=== PATIENT | female | born 1955 ===

== ENCOUNTER 2016-05-10 19:05 | Emergency (ER) | payer SELFPAY ==
[2016-05-10] MEDS ORDERED: Pantoprazole 80 MG in Sodium Chloride 0.9% 100 ML IV STA (19:28)
[2016-05-10] MEDS ORDERED: Sodium Chloride 0.9% 1,000 ML IV ONE (19:28)
--- NOTE | 2016-05-10 19:28 | C.PDOC ---
History Of Present Illness Pt presents to the ED with a c/o blood in stool that began today. Pt has bowel movements x2 daily. Pt denies any nausea, vomiting, fever, dysuria, or any other associated symptoms. Time Seen by Provider: 05/10/16 19:28 Chief Complaint (Nursing): GI Problem History Per: Patient History/Exam Limitations: no limitations Onset/Duration Of Symptoms: Hrs Current Symptoms Are (Timing): Still Present Severity: Mild Associated Symptoms: Rectal Bleeding (Blood in stool). denies: Nausea, Vomiting , Other (Fever. Dysuria) Recent travel outside of the [place]: No Past Medical History Reviewed: Historical Data, Nursing Documentation, Vital Signs Vital Signs: Last Vital Signs Temp 97.4 F L 05/10/16 19:17 Pulse 90 05/10/16 19:17 Resp 20 05/10/16 19:17 BP 119/77 05/10/16 19:17 Pulse Ox 98 05/10/16 20:13 Family History: States: Unknown Family Hx - Social History Hx Alcohol Use: No Hx Substance Use: No Review Of Systems Constitutional: Negative for: Fever Gastrointestinal: Positive for: Other (Blood in stool. ). Negative for: Nausea , Vomiting Genitourinary: Negative for: Dysuria Physical Exam - Physical Exam Appears: Non-toxic Skin: Warm, Dry Gastrointestinal/Abdominal: Normal Exam, Soft, No Tenderness Rectal: No Normal Exam (4/10 pain. 0.3 cm fissure. Bright red blood per rectum in rectal vault.), Heme Positive ED Course And Treatment - Laboratory Results Result Diagrams: 05/10/16 19:48 05/10/16 19:48 ECG: Interpreted By Me, Viewed By Me ECG Rhythm: Sinus Rhythm (83), Nonspecific Changes O2 Sat by Pulse Oximetry: 98 Pulse Ox Interpretation: Normal - Radiology CXR: Interpreted by Me, Viewed By Me Progress Note: blood work ,ivf, protonix Reevaluation Time: 22:02 Reassessment Condition: Improved Disposition Counseled Patient/Family Regarding: Studies Performed, Diagnosis, Need For Followup - Disposition Referrals: [facility] [Outside] Disposition Time: 19:28 Condition: FAIR Prescriptions: Polyethylene Glycol 3350 [Miralax] 17 gm PO DAILY #270 ml Instructions: Anal Fissure (ED), Rectal Bleeding (DC) Print Language: VIETNAMESE - Clinical Impression Clinical Impression: Rectal fissure - Scribe Statement The provider has reviewed the documentation as recorded by the Scribe David Melo All medical record entries made by the Jaylenibe were at my direction and personally dictated by me. I have reviewed the chart and agree that the record accurately reflects my personal performance of the history, physical exam, medical decision making, and the department course for this patient. I have also personally directed, reviewed, and agree with the discharge instructions and disposition.
[2016-05-10 19:53] LABS: BASO # 0.1 K/uL (0.0-0.2); BASO % 1.1 % (0.0-2.0); EOS # 0.3 K/uL (0.0-0.7); EOS % 5.4 % (0.0-4.0); HEMATOCRIT 40.1 % (34.0-47.0); LYMPH # 1.5 K/uL (1.0-4.3); LYMPH % 25.9 % (20.0-40.0); MEAN CELL VOLUME 83.5 fL (81.0-99.0); MEAN CORPUSCULAR HEMOGLOBIN 26.4 pg (27.0-31.0); MEAN CORPUSCULAR HGB CONC 31.7 g/dL (33.0-37.0); MEAN PLATELET VOLUME 8.3 fL (7.2-11.7); MONO # 0.9 K/uL (0.0-0.8); MONO % 15.7 % (0.0-10.0); RED CELL DISTRIBUTION WIDTH 15.5 % (11.5-14.5); WHITE BLOOD COUNT 5.8 K/uL (4.8-10.8)
[2016-05-10] MEDS ORDERED: Sodium Chloride 0.9% 1,000 ML ONE (19:55)
[2016-05-10 19:59] LABS: CHLORIDE 93 mmol/L (98-107); POTASSIUM 3.4 mmol/L (3.6-5.2); SODIUM 139 mmol/L (132-148)
[2016-05-10 20:01] LABS: AST/SGOT 24 U/L (14-36); BILIRUBIN,TOTAL 0.2 mg/dL (0.2-1.3); CARBON DIOXIDE 30 mmol/L (22-30); GFR AFRICAN-AMERICAN > 60
[2016-05-10 20:02] LABS: ALB/GLOB RATIO 1.3 (1.0-2.1); ALKALINE PHOSPHATASE 58 U/L (38-126); ALT/SGPT 21 U/L (9-52); BLOOD UREA NITROGEN 12 mg/dL (7-17); CALCIUM 8.7 mg/dl (8.6-10.4); GLUCOSE,RANDOM 149 mg/dL (65-105); TOTAL PROTEIN 7.3 g/dL (6.3-8.3)
[2016-05-10 20:37] LABS: RBC URINE 26 /hpf (0-3); URINE BILIRUBIN NEGATIVE (NEGATIVE); URINE BLOOD 1+ (NEGATIVE); URINE COLOR Straw (YELLOW); URINE GLUCOSE (UA) NORMAL (Normal); URINE KETONE NEGATIVE (NEGATIVE); URINE LEUKOCYTE ESTERASE NEG Leu/uL (Negative); URINE PROTEIN NEGATIVE (NEGATIVE); URINE UROBILINOGEN NORMAL mg/dL (0.2-1.0); WBC URINE 2 /hpf (0-5)
[2016-05-10 22:16] VITALS: BP 126/79; PULSE 82; RESP 18; TEMP 98.2; O2SAT 99
--- NOTE | 2016-05-11 10:58 | RAD ---
PROCEDURE: CHEST RADIOGRAPH, 1 VIEW HISTORY: GI Bleeding COMPARISON: None available. FINDINGS: LUNGS: Clear. PLEURA: No pneumothorax or pleural fluid seen. CARDIOVASCULAR: Normal. OSSEOUS STRUCTURES: No significant abnormalities. VISUALIZED UPPER ABDOMEN: Normal. OTHER FINDINGS: None. IMPRESSION: No active disease.
--- NOTE | 2016-05-13 09:08 | CARD ---
APPROVED REPORT EKG Measurement Heart [id number] <Conclusion> Normal sinus rhythm Normal ECG
== END 2016-05-10 22:16 | disposition home or self-care (01) ==
LOC: C.ER 19:05
DX: K60.2 Anal fissure, unspecified (principal)
CPT/HCPCS: 71010; 80053; 81001; 85025; 85610; 85730; 86850; 86900; 93005; 96361; 96374; 99284; C9113; G0328; J7040

== ENCOUNTER 2016-09-27 08:19 | Emergency (ER) | payer OTHER ==
--- NOTE | 2016-09-27 09:06 | C.PDOC ---
History Of Present Illness 61 y/o female presents to the ED for evaluation of growing mass on the left neck. States she had this mass for the past 25 years, and was not removed due to near vascular structures that can cause stroke. Notes that mass is getting bigger and firmer. Otherwise, denies any headache, chest pain, shortness of breath, weakness, numbness, tingling sensation, back pain, or fever. Time Seen by Provider: 09/27/16 08:33 Chief Complaint (Nursing): Abnormal Skin Integrity History Per: Patient History/Exam Limitations: no limitations Onset/Duration Of Symptoms: Days Current Symptoms Are (Timing): Still Present Location Of Injury: Left: Neck Quality Of Symptoms: denies: Itching, Swollen, Draining Recent travel outside of the [place]: No Additional History Per: Patient Past Medical History Reviewed: Historical Data, Nursing Documentation, Vital Signs Vital Signs: Last Vital Signs Temp 98.5 F 09/27/16 13:56 Pulse 65 09/27/16 13:56 Resp 18 09/27/16 13:56 BP 119/79 09/27/16 13:56 Pulse Ox 99 09/27/16 13:56 Family History: States: Unknown Family Hx - Social History Hx Alcohol Use: No Hx Substance Use: No Review Of Systems Except As Marked, All Systems Reviewed And Found Negative. Constitutional: Negative for: Fever, Chills Cardiovascular: Negative for: Chest Pain, Palpitations Respiratory: Negative for: Shortness of Breath Gastrointestinal: Negative for: Nausea, Vomiting Musculoskeletal: Negative for: Back Pain Skin: Positive for: Other (mass on left side of neck) Neurological: Negative for: Weakness, Numbness, Headache, Dizziness Physical Exam - Physical Exam Appears: Non-toxic, No Acute Distress Skin: Warm, Dry, Other (4x4cm of firm but mobile mass to left side of neck, superior aspect of clavicle, appears to be over the external jugular vein, non- pulsatile, non-compressible) Head: Atraumatic, Normacephalic Eye(s): bilateral: Normal Inspection, PERRL, EOMI Oral Mucosa: Moist Neck: Normal ROM, No Midline Cervical Tenderness, Supple Cardiovascular: Rhythm Regular, No Murmur Respiratory: Normal Breath Sounds, No Rales, No Rhonchi, No Wheezing Gastrointestinal/Abdominal: Soft, No Tenderness Extremity: Bilateral: Atraumatic, Normal ROM Neurological/Psych: Oriented x3, Normal Speech, Normal Cognition ED Course And Treatment - Laboratory Results Result Diagrams: 09/27/16 09:41 09/27/16 09:41 O2 Sat by Pulse Oximetry: 95 (RA) Pulse Ox Interpretation: Normal Progress Note: Due to concerns for vascular anerysum vs soft tissue lipoma, further studies will be ordered. Blood work, CXR, neck/head soft tissue ultrasound ordered and reviewed. Medical Decision Making Medical Decision Making: Cxray shows Mild left basilar subsegmental atelectasis. U/S shows Complex heterogeneous mass within the left supraclavicular region measuring approximately 5.6 x 3.5 x 5.2 cm. Lesion demonstrates evidence of vascularity. This finding is of unclear etiology and malignant causes cannot be excluded. Recommend clinical correlation. CT soft tissue neck with contrast may be considered for further evaluation. CT shows 3.3 x 4.7 cm lobulated heterogeneously enhancing mass in the left supraclavicular fossa superficial to the left subclavian artery. This is highly suspicious for malignancy. Recommend ultrasound guided biopsy as it encroaches on both venous and arterial structures. Spoke to patient and patient's daughter at length about importance of following up due to concern for cancer. There is no emergent indication for patient o stay in hospital and mass was been present for over 25 years. No aneursym and no respiratory compromise. FNA can be performed as outpatient. Patient reports that she will follow-up in [facility]. Disposition - Disposition Referrals: [facility] [Outside] Disposition: HOME/ ROUTINE Disposition Time: 13:37 Condition: GOOD Additional Instructions: YOUR CAT SCAN SHOWS NECK MASS THAT IS CONCERNING FOR CANCER. YOU NEED TO FOLLOW -UP IN [facility]. RETURN TO ED IF CONDITION WORSENS. Forms: [employer] (German), [employer] (Russian) - Clinical Impression Clinical Impression: Neck mass - Scribe Statement The provider has reviewed the documentation as recorded by the Scribe Valeria Ariza All medical record entries made by the Scribe were at my direction and personally dictated by me. I have reviewed the chart and agree that the record accurately reflects my personal performance of the history, physical exam, medical decision making, and the department course for this patient. I have also personally directed, reviewed, and agree with the discharge instructions and disposition.
[2016-09-27 09:51] LABS: BASO % 0.8 % (0.0-2.0); EOS % 0.8 % (0.0-4.0); HEMOGLOBIN 13.4 g/dL (11.0-16.0); LYMPH # 1.6 K/uL (1.0-4.3); LYMPH % 32.4 % (20.0-40.0); MEAN CORPUSCULAR HEMOGLOBIN 26.9 pg (27.0-31.0); MEAN PLATELET VOLUME 8.3 fL (7.2-11.7); MONO # 0.5 K/uL (0.0-0.8); MONO % 10.2 % (0.0-10.0); NEUT # 2.8 K/uL (1.8-7.0); NEUT % 55.8 % (50.0-75.0); NRBC % 0.1 % (0.0-2.0); RBC 4.99 Mil/uL (3.80-5.20); RED CELL DISTRIBUTION WIDTH 15.9 % (11.5-14.5); WHITE BLOOD COUNT 5.1 K/uL (4.8-10.8)
[2016-09-27 09:57] LABS: PROTHROMBIN TIME 10.8 SECONDS (9.7-12.2)
[2016-09-27 09:58] LABS: ALBUMIN 4.1 g/dL (3.5-5.0)
[2016-09-27 10:01] LABS: ALB/GLOB RATIO 1.3 (1.0-2.1); ALT/SGPT 30 U/L (9-52); AST/SGOT 22 U/L (14-36); BLOOD UREA NITROGEN 9 mg/dL (7-17); GFR AFRICAN-AMERICAN > 60; GFR NON-AFRICAN AMERICAN > 60
[2016-09-27 10:02] LABS: CALCIUM 9.1 mg/dl (8.6-10.4)
--- NOTE | 2016-09-27 11:17 | US ---
Indication: Left-sided neck mass Neck/head soft tissue ultrasound limited Comparison: None available Findings: Complex heterogeneous mass identified with in the left supraclavicular region with evidence of vascularity. This finding measures approximately 5.6 x 3.5 x 5.2 cm. Impression: Complex heterogeneous mass within the left supraclavicular region measuring approximately 5.6 x 3.5 x 5.2 cm. Lesion demonstrates evidence of vascularity. This finding is of unclear etiology and malignant causes cannot be excluded. Recommend clinical correlation. CT soft tissue neck with contrast may be considered for further evaluation.
--- NOTE | 2016-09-27 11:45 | RAD ---
HISTORY: L neck mass COMPARISON: Chest x-ray performed 05/10/16 TECHNIQUE: Chest PA and lateral FINDINGS: LUNGS: Mild subsegmental left basilar atelectasis. No focal consolidation. Please note that chest x-ray has limited sensitivity for the detection of pulmonary masses. PLEURA: No significant pleural effusion identified. No definite pneumothorax . CARDIOVASCULAR: Heart size appears top normal. OSSEOUS STRUCTURES: Degenerative changes. VISUALIZED UPPER ABDOMEN: Unremarkable. OTHER FINDINGS: None. IMPRESSION: Mild left basilar subsegmental atelectasis.
[2016-09-27 11:47] VITALS: TEMP 98.5
[2016-09-27] MEDS ORDERED: Iodixanol 320 MG/ML 100 ML BOTTLE IV ONE (12:05)
--- NOTE | 2016-09-27 13:34 | CT ---
PROCEDURE: CT NECK WITH CONTRAST HISTORY: mass found on u/s, ct recommended to eval further COMPARISON: Ultrasound 09/27/16 TECHNIQUE: CT of the neck with intravenous contrast. Coronal and sagittal reformats generated. Intravenous contrast dose: 100 cc Omnipaque Radiation dose: DLP 316 mGy-cm This CT exam was performed using one or more of the following dose reduction techniques: Automated exposure control, adjustment of the mA and/or kV according to patient size, and/or use of iterative reconstruction technique. FINDINGS: NASOPHARYNX: Unremarkable. SUPRAHYOID NECK: Unremarkable oropharynx, oral cavity, parapharyngeal space and retropharyngeal space. INFRAHYOID NECK: Unremarkable larynx, hypopharynx, and supraglottic space. Vocal cords intact. MASS: 3.3 x 4.7 cm lobulated heterogeneously enhancing mass in the left supraclavicular fossa superficial to the left subclavian artery. Highly suspicious for malignancy. GLANDS: Parotid and submandibular glands unremarkable. Normal size thyroid gland, without nodule. LYMPH NODES: Normal. No lymphadenopathy. CERVICAL SPINE: No fracture or focal lesion. VASCULAR STRUCTURES: Unremarkable. OTHER FINDINGS: None. IMPRESSION: 3.3 x 4.7 cm lobulated heterogeneously enhancing mass in the left supraclavicular fossa superficial to the left subclavian artery. This is highly suspicious for malignancy. Recommend ultrasound guided biopsy as it encroaches on both venous and arterial structures.
[2016-09-27 13:57] VITALS: BP 119/79; PULSE 65; RESP 18
[2016-09-27 14:12] VITALS: O2SAT 95
== END 2016-09-27 14:10 | disposition home or self-care (01) ==
LOC: C.ER 08:19
DX: R22.1 Localized swelling, mass and lump, neck (principal)
CPT/HCPCS: 70491; 71020; 76536; 80053; 85025; 85610; 85730; 86850; 86900; 99285; Q9967